=== PATIENT | female | born 1990 | race Asian ===

== ENCOUNTER 2018-03-21 12:24 | Emergency (ER) | payer BC ==
[2018-03-21 12:45] VITALS: BP 119/50
--- NOTE | 2018-03-21 13:06 | ED ---
Skin Complaint - HPI Summary HPI Summary: Patient here with tick bite to right bicep area. This tick is been on for about one hour. There is no pain, redness or swelling in the area. She suspects this climbed on from their family pet, the dog, who went out for a walk this morning. She is here to have the tick removed she has not attempted to do this herself. Her immunizations are up-to-date. She is 22 weeks . - History of Current Complaint Chief Complaint: EDAnimalBite Time Seen by Provider: 03/21/18 12:26 Stated Complaint: TIC BITE Hx Obtained From: Patient, Family/Speaker Mounter - Pain Intensity: 0 - Allergy/Home Medications Home Medications: Home Medications Pnv No.95/Ferrous Fum/Folic AC [ and Iron] 1 tab PO DAILY 03/21/18 [ History Confirmed 03/21/18] PMH/Surg Hx/FS Hx/Imm Hx Previously Healthy: Yes Endocrine/Hematology History: Denies: Hx Anticoagulant Therapy, Hx Blood Disorders, Hx Unexplained Bleeding , Autoimmune Disease - Immunization History Immunizations Up to Date: Yes Infectious Disease History: No Infectious Disease History: Denies: Hx of Known/Suspected MRSA, Traveled Outside the in Last 30 Days - Social History Occupation: Employed Full-time Lives: With Family Alcohol Use: None Hx Substance Use: No Substance Use Type: Reports: None Hx Tobacco Use: No Smoking Status (MU): Never Smoked Tobacco - alt Review of Systems Constitutional: Negative Negative: Fever, Chills, Fatigue Positive: no symptoms reported Musculoskeletal: Negative Skin: Other - tick in skin Neurological: Negative Psychological: Normal All Other Systems Reviewed And Are Negative: Yes Physical Exam Triage Information Reviewed: Yes Vital Signs On Initial Exam: Initial Vitals Temp Pulse Resp BP Pulse Ox 98.1 F 77 16 119/50 100 03/21/18 12:40 03/21/18 12:40 03/21/18 12:40 03/21/18 12:40 03/21/18 12:40 Vital Signs Reviewed: Yes Appearance: Positive: Well-Appearing, No Pain Distress, Well-Nourished Skin: Positive: Warm, Skin Color Reflects Adequate Perfusion, Dry - small tick with head imbedded into Rt distal bicep tissue -tick is flat w/o engorgment - surrounding tissue clear w/o erythema Head/Face: Positive: Normal Head/Face Inspection Eyes: Positive: EOMI ENT: Positive: Hearing grossly normal Respiratory/Lung Sounds: Positive: Breath Sounds Present Cardiovascular: Positive: Pulses are Symmetrical in both Upper and Lower Extremities Musculoskeletal: Positive: Normal, Strength/ROM Intact Neurological: Positive: Normal, Sensory/Motor Intact, Alert, Oriented to Person Place, Time, CN Intact II-III Psychiatric: Positive: Normal Procedures - Procedure Summary Procedure Summary: tick removed w/ tick remover w/o difficulty - entire tick removed w/o remnants - pt tolerated well. Diagnostics - Vital Signs Vital Signs Temp Pulse Resp BP Pulse Ox 03/21/18 12:40 98.1 F 77 16 119/50 100 - Laboratory Lab Statement: Any lab studies that have been ordered have been reviewed, and results considered in the medical decision making process. Course/Dx - Course Course Of Treatment: Patient's tick on her right bicep area has been attached for about an hour and does not appear engorged. Surrounding tissue is clear. Tick was removed easily without complication - no remnants left behind. Given the fact that this tick was on for far less than 36 hours and she is , doxycycline was not administered as it is not necessary at this time. Advised the couple to monitor the area for a bulls eye rash however the likelihood of this occurring is almost negligible. - Diagnoses Provider Diagnoses: Tick bite of right upper arm Discharge - Sign-Out/Discharge Documenting (check all that apply): Discharge/Admit/Transfer - Discharge Plan Condition: Stable Disposition: HOME Patient Education Materials: Tick Bite (ED) Referrals: No Primary Care Phys,NOPCP [Primary Care Provider] - Additional Instructions: Your tick bite was removed easily and completely today after only one hour of attachment. The risk of transmitting Lyme disease given this scenario is almost impossible. Keep an eye on the area for a "bull's-eye rash" also known as erythema migrans. Should this occur, seek medical attention immediately. Otherwise keep area clean until bite is healed. - Billing Disposition and Condition Condition: STABLE Disposition: HOME
== END 2018-03-21 13:00 | disposition home or self-care (01) ==
LOC: ED 12:24
DX: S40.861A Insect bite (nonvenomous) of right upper arm, initial encounter (principal); W57.XXXA Bitten or stung by nonvenomous insect and other nonvenomous arthropods, initial encounter; Y92.9 Unspecified place or not applicable; O26.892 Other specified pregnancy related conditions, second trimester; Z3A.22 22 weeks gestation of pregnancy
CPT/HCPCS: 99281